=== PATIENT | female | born 1995 | race Caucasian/White ===

== ENCOUNTER 2018-09-25 10:53 | Emergency (ER) | payer OTHER ==
[~2018-09-25] VITALS: Ht 160 cm; Wt 96.2 kg
[2018-09-25 11:00] VITALS: Ht 160 cm; Wt 96.2 kg
[2018-09-25 11:30] VITALS: BP 127/91
== END 2018-09-25 11:30 | disposition home or self-care (01) ==
LOC: ED 10:53
DX: K05.20 Aggressive periodontitis, unspecified (principal)